=== PATIENT | female | born 1990 | race African-American/Black ===

== ENCOUNTER 2017-01-15 18:57 | Emergency (ER) | payer BC, OTHER ==
[~2017-01-15] VITALS: Ht 162.6 cm; Wt 88.0 kg
[~2017-01-15 18:57] MED LIST: BENADRYL25 MG PO; FLAGYL500 MG PO; IBUPROFEN 600600 M1 PO; KEFLEX500 MG PO; MEDROL DOSPAK21 TAB PO; MICROGESTIN FE1 EACH PO; NOHOMEMEDICATIONS; NORCO 5-325 TA1 EACH PO
[2017-01-15 19:24] LABS: URINE BILIRUBIN NEGATIVE (Negative); URINE BLOOD NEGATIVE (Negative); URINE COLOR YELLOW; URINE GLUCOSE-RANDOM* NEGATIVE (Negative); URINE KETONES NEGATIVE (Negative); URINE LEUKOCYTES-REFLEX NEGATIVE (Negative); URINE PROTEIN (DIPSTICK) NEGATIVE (Negative); URINE SPECIFIC GRAVITY 1.025 (1.003-1.035)
[2017-01-15 19:26] LABS: ABSOLUTE NEUTROPHILS 6.1 thou/uL (1.4-8.2); BASOPHILS 0.6 % (0.0-2.0); EOSINOPHILS 2.6 % (0.0-3.0); HEMATOCRIT 41.9 % (37.0-47.0); HEMOGLOBIN 14.3 gm/dL (12.0-15.0); LYMPHOCYTES 21.7 % (24.0-44.0); MCH 29.7 pg (26.0-34.0); MCHC 34.1 g/dL (28.0-37.0); MCV 87.1 fL (80.0-100.0); MONOCYTES 8.8 % (1.0-8.0); PLATELET COUNT 253 thou/uL (150-400); POLYS 66.3 % (36.0-66.0); RBC 4.82 mil/uL (4.20-5.00); RDW 12.4 % (10.5-14.5); WBC 9.1 thou/uL (4.0-11.0)
[2017-01-15 19:27] LABS: MANUAL DIFF NO
[2017-01-15 19:35] LABS: CALCIUM 9.3 mg/dL (8.5-10.1); CREATININE 0.7 mg/dL (0.6-1.0); POTASSIUM 3.6 mmol/L (3.5-5.1)
[2017-01-15 19:40] LABS: ALBUMIN 3.9 g/dL (3.4-5.0); TOTAL BILIRUBIN 0.4 mg/dL (<0.1-1.0); TOTAL PROTEIN 7.8 g/dL (6.4-8.2)
[2017-01-15] MEDS ORDERED: PRENATAL COMPL1 EACH PO (22:59)
[2017-01-15] MEDS ORDERED: PRENATA CHEWAB1 EACH PO (23:01)
[2017-01-15 23:31] VITALS: BP 124/84
== END 2017-01-15 23:32 | disposition home or self-care (01) ==
LOC: ER 18:57
PROVIDERS: Emergency Medicine
DX: O26.891 Other specified pregnancy related conditions, first trimester (principal); Z3A.01 Less than 8 weeks gestation of pregnancy; F10.99 Alcohol use, unspecified with unspecified alcohol-induced disorder